=== PATIENT | female | born 1945 | race Caucasian/White ===

== ENCOUNTER 2018-08-12 07:50 | Day surgery (SDC) | payer OTHER, MEDICARE ==
[2018-08-11 10:00] VITALS: BMI 27.1
--- NOTE | 2018-08-11 15:58 | HP ---
- Patient Scheduled date of Surgery: 08/12/18 Scheduled Surgical Procedure: Phacoemulsification and cataract extraction with PCIOL Affected Eye: Right Chief Complaint (Indication for surgery): Decreased vision affecting ADLs - Ocular History Other Eye History: Other (none) Eye Medications: vigamox Previous Eye Surgery: none - Medical History Illnesses: Hypertension, Other (arthritis) Current Medications: Ambulatory Orders Amlodipine Besylate 5 mg PO DAILY 08/11/18 Hydrochlorothiazide 12.5 mg PO DAILY 08/11/18 Allergies/Adverse Reactions: Allergies Allergy/AdvReac Type Severity Reaction Status Date / Time No Known Allergies Allergy Verified 08/11/18 10:00 Ocular Examination - Best Corrected Visual Acuity Distance: Right eye: 20/40 Distance: Left eye: 20/30 - External/Slit Lamp Examination Abnormalities: none - Intraocular Pressure Intraocular Pressure - Right eye: 14 Intraocular Pressure-Left eye: 14 - Lens Lens: 2+ NS 2+ posterior cortical changes - Vitreous/Retina Vitreous/Retina: C:D 0.3 m/v/p wnl - Special Examination M - Right eye: -1.00-1.25 x 015 M - Left eye: -1.00-1.00 x 010 K - Right eye: 43.5/44.75 x 100 K - Left eye: 43.25/44.75 x 090 AL - Right eye: 24.87 AL - Left eye: 24.66 IOL bag: +16.0 AUOOTO LRI at 81 and 261 IOL sulcus: +15.0 MN60AC IOL AC: +13.0 MTA 4uo - Impression Impression: Cataract Right Eye - Plan Plan: Phacoemulsification and cataract extraction - IOL Right eye Post-hospital care will be provided in office on: 08/13/18
--- NOTE | 2018-08-12 07:29 | HP ---
History & Physical Update - History History: No Change - Physical Physical: No Change - Assessment Assessment: No Change - Plan Plan: No Change (Reviewd Dr. Falcon's H and P from no changes)
[~2018-08-12 07:50] MED LIST: BSS (NA/CA/MG/K) BALANCED SALT SOLUTION OPHTH SOLN 15 ML BOTTLE IO ONE; CHONDROITIN SU A/HYALUR SOD 1 KIT IO ONE; LIDOCAINE HCL 1% PRESERVATIVE FREE - 30ML VIAL IO ONE; POVIDONE-IODINE 5% OPHTHALMIC PREP 30 ML SOLUTION OD ONE; TETRACAINE 0.5% HCL 0.6ML DROPPER.BOTTLE TP ONE; TOBRAMYCIN 0.3% OPHTH OINT 3.5 GM OD ONE
[2018-08-12] MEDS ORDERED: KETOROLAC TROMETHAMINE 0.5% EYE DROP 1 DROP DROPS OP SCH (08:00)
[2018-08-12] MEDS ORDERED: CIPROFLOXACIN HCL 0.3% OPHTH 2.5ML BOTTLE OP SCH (08:00)
[2018-08-12] MEDS ORDERED: TROPICAMIDE 1% OPHTH SOLN 15 ML BOTTLE OP SCH (08:00)
[2018-08-12] MEDS ORDERED: ACETAMINOPHEN 325 MG TABLET (FP) PO PRN (08:00)
[2018-08-12] MEDS ORDERED: PHENYLEPHRINE 2.5% OPHTH SOLN 15 ML BOTTLE OP SCH (08:00)
[2018-08-12] MEDS ORDERED: KETOROLAC TROMETHAMINE 0.5% EYE DROP 1 DROP DROPS ONE (08:06)
[2018-08-12] MEDS ORDERED: CIPROFLOXACIN HCL 0.3% OPHTH 2.5ML BOTTLE ONE (08:06)
[2018-08-12] MEDS ORDERED: TROPICAMIDE 1% OPHTH SOLN 15 ML BOTTLE ONE (08:06)
[2018-08-12 08:20] VITALS: TEMP 97.8
[2018-08-12] MEDS ORDERED: TETRACAINE 0.5% HCL 0.6ML DROPPER.BOTTLE TP ONE (09:39)
[2018-08-12] MEDS ORDERED: MIDAZOLAM HCL 2 MG/2 ML SINGLE DOSE VIAL ONE (09:42)
[2018-08-12] MEDS ORDERED: POVIDONE-IODINE 5% OPHTHALMIC PREP 30 ML SOLUTION OD ONE (09:43)
[2018-08-12] MEDS ORDERED: LIDOCAINE HCL 1% PRESERVATIVE FREE - 30ML VIAL IO ONE (09:52)
[2018-08-12] MEDS ORDERED: BSS (NA/CA/MG/K) BALANCED SALT SOLUTION OPHTH SOLN 15 ML BOTTLE IO ONE ×2 (09:52→10:09)
[2018-08-12] MEDS ORDERED: CHONDROITIN SU A/HYALUR SOD 1 KIT IO ONE (09:57)
[2018-08-12] MEDS ORDERED: EPINEPHrine/PF 1 MG/1 ML (1:1,000) AMPULE SQ ONE (10:01)
[2018-08-12] MEDS ORDERED: TETRACAINE 0.5% OPHTH SOLN 2 ML BOTTLE ONE (10:14)
[2018-08-12] MEDS ORDERED: TOBRAMYCIN/DEXAMETHASONE OPHTH. OINTMENT 1 TUBE ONE (10:14)
[2018-08-12] MEDS ORDERED: LIDOCAINE HCL/PF 1% SDV 5ML VIAL ONE (10:14)
[2018-08-12] MEDS ORDERED: EPINEPHrine/PF 1 MG/1 ML (1:1,000) AMPULE ONE (10:14)
[2018-08-12] MEDS ORDERED: TRYPAN BLUE 0.5 ML DISP.SYRIN ONE (10:14)
[2018-08-12] MEDS ORDERED: TOBRAMYCIN 0.3% OPHTH OINT 3.5 GM OD ONE (10:15)
--- NOTE | 2018-08-12 10:24 | OP ---
Ophthalmology Operative Note Pre-Operative Diagnosis: Cataract Affected Eye: Right Operation: Phacoemulsification and cataract extraction with PCIOL Findings: ns cataract right eye Post-Operative Diagnosis: Same as Pre-op Director Smb Sales: None Anesthesiologist: Rosa Guerra Anesthesia: Topical Specimens Removed: none Estimated blood loss: <1 cc Drains & Tubes with Location: none Operative Report Dictated: Yes
--- NOTE | 2018-08-12 11:52 | OP ---
DATE OF OPERATION: DATE OF DICTATION: 08/12/2018 PREOPERATIVE DIAGNOSIS: Nuclear sclerotic cataract, right eye. POSTOPERATIVE DIAGNOSIS: Nuclear sclerotic cataract, right eye. PROCEDURE: Phacoemulsification and cataract extraction with insertion of posterior chamber intraocular lens, right eye. SURGEON: Mikal Desouza MD LINUX SYSTEMS ANALYST: None. ANESTHESIA: Topical. ANESTHESIOLOGIST: Rosa Guerra DO OPERATIVE PROCEDURE: The patient received tetracaine eye drops and was gently sedated and prepped and draped in the usual sterile fashion so as to expose only the right eye. Ophthalmic Betadine was instilled into the inferior fornix and the lashes were taped out of the surgical field. An eyelid speculum was placed into the right eye. A paracentesis was made in superior temporal clear cornea at the limbus. Next, 0.5 mL of non-preserved lidocaine 1% was injected into the anterior chamber. Viscoelastic material was instilled into the anterior chamber via the paracentesis. A 2.4-mm keratome was then used to create the main incision in temporal clear cornea at the limbus. A continuous curvilinear capsulorrhexis was performed using a cystitome and Utrata forceps. Hydrodissection of the lens cortex was performed using BSS on a cannula until the nucleus was noted to be freely rotating. The phacoemulsification tip was inserted via the main wound and used to sculpt two perpendicular grooves into the lens nucleus. The nuclear was cracked into 4 quadrants. Each quadrant was lifted out of the capsule, into the iris plane, and individually phacoemulsified. The remaining cortical material was then aspirated using the irrigation and aspiration port. The capsular bag was inflated using Provisc and a preloaded AcrySof lens model [id number] power +16.0 diopters was loaded into the port, injected into the capsular bag. It was centered using a Sinskey hook. The residual viscoelastic material was removed from the anterior chamber using irrigation and aspiration. The wound edges were hydrated using BSS. The wound was tested for leakage. It was found to be watertight. However, one 10-0 nylon suture was placed across the wound to attempt to neutralize astigmatism. TobraDex ointment was placed in the eye and the speculum was removed from the eye. The eyelid was closed. A sterile dressing and shield were placed over the eye and the patient was transferred to the recovery room in stable condition. Told to follow up in 1 day. MIKAL DESOUZA M.D. RAVINDER/[id number]
[2018-08-12 12:33] VITALS: BP 138/73; PULSE 79
== END 2018-08-12 12:36 | disposition home or self-care (01) ==
LOC: JASU-SURG 07:50
PROVIDERS: ATTEND Ophthalmology
PROC: 08RJ3JZ Replacement of Right Lens with Synthetic Substitute, Percutaneous Approach (ICD-10-PCS; principal; 2018-08-12 09:30)
DX: H25.11 Age-related nuclear cataract, right eye (principal)

== ENCOUNTER 2018-12-30 08:22 | Day surgery (SDC) | payer OTHER, MEDICARE | END 2018-12-30 12:15 | disposition home or self-care (01) | LOC: JASU-SURG 08:22 ==